=== PATIENT | male | born 1960 | race Caucasian/White ===

== ENCOUNTER 2017-05-01 17:21 | Emergency (ER) | payer OTHER ==
[2017-05-01 17:27] VITALS: RESP 17; TEMP 97.7
[2017-05-01] MEDS ORDERED: ASPIRIN 81 MG CHEWABLE TAB PO ONE (17:30)
--- NOTE | 2017-05-01 17:30 | EDPHY ---
H & P Stated Complaint: CP since last night Time Seen by Provider: 05/01/17 17:29 - Personal History Current Tetanus/Diphtheria Vaccine: Yes Current Tetanus Diphtheria and Acellular Pertussis (TDAP): Yes - Medical/Surgical History Hx Asthma: No Hx Chronic Respiratory Disease: No Hx Diabetes: No Hx Cardiac Disease: No Hx Renal Disease: Yes Hx Cirrhosis: No Hx Alcoholism: No Hx HIV/AIDS: No Hx Splenectomy or Spleen Trauma: No Other PMH: Denies - Social History Smoking Status: Never smoked Constitutional: Initial Vital Signs Temperature (C) 36.5 C 05/01/17 17:24 Heart Rate 83 05/01/17 17:24 Respiratory Rate 17 05/01/17 17:24 Blood Pressure 129/99 H 05/01/17 17:24 O2 Sat (%) 99 05/01/17 17:24 O2 Delivery Mode Room Air Allergies/Adverse Reactions: Cephalosporins Allergy (Verified 05/01/17 17:34) ciprofloxacin [From Cipro] Allergy (Verified 05/01/17 17:23) Home Medications: Medication Instructions Recorded ASPIRIN 05/01/17 Fish Oil 1,000 mg Capsule 05/01/17 Vit D3/Folic Acid/B2/B6/B12 05/01/17 Medical Decision Making - Diagnostics Imaging Results: Imaging Impressions Chest X-Ray 05/01/17 17:30 Impression: No acute findings in the chest. Imaging: I viewed and interpreted images myself ED Course/Re-evaluation: CHIEF COMPLAINT: Chest pain HISTORY OF PRESENT ILLNESS: The patient is a 57 y/o male arriving with his complaining of "achy" right-sided chest pain onset early this morning. He has no prior cardiac history or known cardiac risk factors. Early this morning he woke up to urinate and noticed mild achiness on the right side of his anterior chest. He had no associated dyspnea, near-syncopal symptoms, lightheadedness, or nausea and returned to sleep without issue. Upon waking this morning his discomfort was still present and has been constant throughout the day around a 1/10 in severity. His pain has remained primarily localized to his right anterior chest with some epigastric involvement. It is non-radiating and not exacerbated with stress, exertion, movement, breathing, or palpation. He took Tums for possible reflux without improvement and ibuprofen and Tylenol for pain with perhaps minimal alleviation. He also notes some mild pain near his right shoulder blade yesterday that was reproducible with palpation and felt musculoskeletal in nature. He has no familial cardiac. He has low cholesterol, no hypertension or diabetes history, and a routine EKG in February was normal. He was able to complete "rigorous" dancing on Sunday with no issues. REVIEW OF SYSTEMS: A 10 point review of systems was performed and is negative with the exception of the elements mentioned in the history of present illness. PHYSICAL EXAM: HR, BP, O2 Sat, RR. Temp noted General Appearance: Alert, well hydrated, appropriate, and non-toxic appearing. Head: Atraumatic without scalp tenderness or obvious injury Eyes: Pupils equal, round, reactive to light and accommodation, EOMI, no trauma , no injection. Nose: Atraumatic, no rhinorrhea, clear. Throat: Mucus membranes moist. Neck: Supple, nontender, no lymphadenopathy. Respiratory: No retractions, no distress, no wheezes, and no accessory muscle use. Lungs are clear to auscultation bilaterally. Cardiovascular: Regular rate and rhythm, no murmurs, rubs, or gallops. Good capillary refill all extremities. Gastrointestinal: Abdomen is soft, nontender, non-distended, no masses, no rebound, no guarding, no peritoneal signs. Musculoskeletal: Normal active ROM of all extremities, atraumatic. Neurological: Alert, appropriate, and interactive. The patient has non-focal cranial nerves, motor, sensory, and cerebellar exam. Skin: No rashes, good turgor, no nodules on palpation. 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 No cardiac history. Social history: Walks a couple miles per day. , at bedside. 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 Nonsmoker. DIAGNOSTICS/PROCEDURES/CRITICAL CARE TIME: The 12 lead EKG was interpreted by myself. Sinus rhythm rate 73, LAFB. See hard copy and/or "tracemaster" electronic copy for interpretation. Chest x-ray: negative DIFFERENTIAL DIAGNOSIS: The differential diagnosis for the patient's chest pain included but was not limited to myocardial ischemia, pulmonary embolus, chest wall pain, pleural inflammation, and pulmonary infectious causes. MEDICAL DECISION MAKING: This is a healthy 57 y/o male who presents with a 1-day history of mild, constant right-sided chest achiness. His exam is unremarkable. Apart from age, he is quite low risk for cardiac etiology of his symptoms. Plan for cardiac work up including IV, labs, EKG, and chest x-ray. Reassessed patient and discussed work up thus far. His EKG shows sinus mechanism. Chest x-ray negative. Labs unremarkable. I've recommended following up with Dr. Osborne tomorrow to discuss further cardiac rule out and assessment. He will continue taking a daily 81mg aspirin as well. Return precautions discussed. He is comfortable with discharge plan. - Data Points Laboratory Results: Laboratory Results 05/01/17 17:45 05/01/17 17:45 05/01/17 05/01/17 05/01/17 17:45 17:45 17:45 WBC 7.54 10^3/uL 10^3/uL (3.80-9.50) RBC 5.37 10^6/uL 10^6/uL (4.40-6.38) Hgb 16.3 g/dL g/dL (13.7-17.5) Hct 48.0 % % (40.0-51.0) MCV 89.4 fL fL (81.5-99.8) MCH 30.4 pg pg (27.9-34.1) MCHC 34.0 g/dL g/dL (32.4-36.7) RDW 12.7 % % (11.5-15.2) Plt Count 187 10^3/uL 10^3/uL (150-400) MPV 10.6 fL fL (8.7-11.7) Neut % (Auto) 49.6 % % (39.3-74.2) Lymph % (Auto) 38.7 % % (15.0-45.0) Drew % (Auto) 8.4 % % (4.5-13.0) Eos % (Auto) 2.3 % % (0.6-7.6) Baso % (Auto) 0.7 % % (0.3-1.7) Nucleat RBC Rel Count 0.0 % % (0.0-0.2) Absolute Neuts (auto) 3.75 10^3/uL 10^3/uL (1.70-6.50) Absolute Lymphs (auto) 2.92 10^3/uL 10^3/uL (1.00-3.00) Absolute Monos (auto) 0.63 10^3/uL 10^3/uL (0.30-0.80) Absolute Eos (auto) 0.17 10^3/uL 10^3/uL (0.03-0.40) Absolute Basos (auto) 0.05 10^3/uL 10^3/uL (0.02-0.10) Absolute Nucleated RBC 0.00 10^3/uL 10^3/uL (0-0.01) Immature Gran % 0.3 % % (0.0-1.1) Immature Gran # 0.02 10^3/uL 10^3/uL (0.00-0.10) D-Dimer < 0.27 ug/mLFEU ug/mLFEU (0.00-0.50) Sodium 143 mEq/L mEq/L (134-144) Potassium 4.4 mEq/L mEq/L (3.5-5.2) Chloride 105 mEq/L mEq/L (97-110) Carbon Dioxide 27 mEq/l mEq/l (22-31) Anion Gap 11 mEq/L mEq/L (8-16) BUN 24 mg/dL H mg/dL (7-23) Creatinine 0.8 mg/dL mg/dL (0.7-1.3) Estimated GFR > 60 Glucose 85 mg/dL mg/dL (70-100) Calcium 9.5 mg/dL mg/dL (8.5-10.4) Troponin I < 0.012 ng/mL ng/mL (0.000-0.034) Medications Given: Discontinued Medications Aspirin (Aspirin) 324 mg PO EDNOW ONE Stop: 05/01/17 17:31 Last Admin: 05/01/17 17:38 Dose: 324 mg Departure - Departure Disposition: Home, Routine, Self-Care Clinical Impression: Chest pain Qualifiers: Chest pain type: other chest pain Qualified Code(s): R07.89 - Other chest pain Condition: Good Instructions: Chest Pain (ED) Additional Instructions: 1. Follow up with Dr. Osborne's office this week for further cardiac work up. 2. Return to the ED for worsening pain, shortness of breath, lightheadedness, or other worsening of condition. 3. I recommend taking a daily 81mg aspirin until you see Dr. Osborne. Referrals: Jammie Huizar MD [Primary Care Provider] - As per Instructions Lalo Osborne MD [Medical Doctor] - As per Instructions Report Scribed for: Davis Gutierrez Report Scribed by: Yadi Rosas Date of Report: 05/01/17 Time of Report: 17:44
--- NOTE | 2017-05-01 17:41 | CPEKG ---
Heart Rate: 73 RR Interval: 822 P-R Interval: 160 QRSD Interval: 96 QT Interval: 360 QTC Interval: 397 P [place]: 71 QRS [place]: 123 T Wave [place]: 33 EKG Severity - ABNORMAL ECG - EKG Impression: SINUS RHYTHM EKG Impression: LEFT POSTERIOR FASCICULAR BLOCK Electronically Signed By: Casey Love 02-May-2017 06:59:32
[2017-05-01 18:02] LABS: % IMMATURE GRANULYOCYTES 0.3 % (0.0-1.1); ABSOLUTE IMMATURE GRANULOCYTES 0.02 10^3/uL (0.00-0.10); ADD DIFF? NO; ADD MORPH? NO; ADD SCAN? NO; ATYPICAL LYMPHOCYTE FLAG 0 (0-99); FRAGMENT RBC FLAG 0 (0-99); HEMOGLOBIN 16.3 g/dL (13.7-17.5); LEFT SHIFT FLG 0 (0-99); LIPEMIA HEMOLYSIS FLAG 90 (0-99); MEAN CELL HEMOGLOBIN 30.4 pg (27.9-34.1); MEAN CELL VOLUME 89.4 fL (81.5-99.8); MEAN PLATELET VOLUME 10.6 fL (8.7-11.7); PLATELET CLUMPS FLAG 0 (0-99); PLATELET COUNT 187 10^3/uL (150-400); RED BLOOD CELL COUNT 5.37 10^6/uL (4.40-6.38); RED CELL DISTRIBUTION WIDTH 12.7 % (11.5-15.2)
[2017-05-01 18:11] LABS: ANION GAP 11 mEq/L (8-16); CALCIUM 9.5 mg/dL (8.5-10.4); CARBON DIOXIDE 27 mEq/l (22-31); CHLORIDE 105 mEq/L (97-110); CREATININE 0.8 mg/dL (0.7-1.3); GLOMERULAR FILTRATION RATE > 60; GLUCOSE 85 mg/dL (70-100); POTASSIUM 4.4 mEq/L (3.5-5.2); SODIUM 143 mEq/L (134-144)
[2017-05-01 18:24] LABS: TROPONIN I < 0.012 ng/mL (0.000-0.034)
[2017-05-01 18:53] VITALS: BP 125/89; PULSE 70; O2SAT 98
== END 2017-05-01 18:53 | disposition home or self-care (01) ==
DX: R07.89 Other chest pain (principal); Z79.82 Long term (current) use of aspirin